=== PATIENT | female | born 1990 | race Caucasian/White ===

== ENCOUNTER 2020-02-25 22:22 | Emergency (ER) | payer SELFPAY ==
[~2020-02-25] VITALS: Ht 160 cm; Wt 63.5 kg
[2020-02-25 22:25] VITALS: BP 102/71
--- NOTE | 2020-02-25 22:35 | NUR ---
DR. SAGE AT BEDSIDE FOR MEDICAL EVALUATION.
--- NOTE | 2020-02-25 22:40 | NUR ---
PT ASSESSMENT COMPLETED BY DR. SAGE, NO NURSING INTERVENTIONS NEEDED AT THIS TIME.
[2020-02-25 22:43] VITALS: BP 102/71
--- NOTE | 2020-02-25 22:43 | NUR ---
Patient discharged with v/s stable. Written and verbal after care instructions given and explained. Patient verbalized understanding. Escorted by P with steady gait. All questions addressed prior to discharge. Advised to follow up with PMD.
== END 2020-02-25 22:43 ==
LOC: MED 22:22
DX: Z04.1 Encounter for examination and observation following transport accident (principal); Z02.89 Encounter for other administrative examinations
CPT/HCPCS: 99283